=== PATIENT | female | born 1975 | race Caucasian/White ===

== ENCOUNTER 2018-07-11 14:49 | Emergency (ER) | payer OTHER ==
[~2018-07-11] VITALS: Ht 170.2 cm; Wt 98.9 kg
[2018-07-11] MEDS ORDERED: ALDOMET250 MG (14:55)
[2018-07-11] MEDS ORDERED: ALBUTEROL0.63 MG/3 (14:55)
[2018-07-11] MEDS ORDERED: PRENATABS RX T1 EACH (14:56)
== END 2018-07-11 19:15 | disposition home or self-care (01) ==
LOC: ER 14:49
DX: O20.0 Threatened abortion (principal); Z34.81 Encounter for supervision of other normal pregnancy, first trimester

== ENCOUNTER 2018-09-07 17:20 | Inpatient (IN) | payer OTHER ==
[~2018-09-07] VITALS: Ht 170.2 cm; Wt 98.9 kg
[~2018-09-07 17:20] MED LIST: ALBUTEROL0.63 MG/3; ALDOMET250 MG; PRENATABS RX T1 EACH
[2018-09-11] MEDS ORDERED: HUMULIN N100 UNIT/2 SUBCUTANEO ×2 (07:09)
[2018-09-11] MEDS ORDERED: DOCUSATE SODIU100 MG PO (07:09)
[2018-09-11] MEDS ORDERED: ASA-EC81 MG PO (07:09)
[2018-09-11] MEDS ORDERED: HumuLIN R 100 UNIT/1 SUBCUTANEO ×2 (07:09)
== END 2018-09-11 09:30 | disposition home or self-care (01) | DRG 832 ==
LOC: OB/GYN 17:20
PROVIDERS: ADMIT Obstetrics & Gynecology
PROC: 4A1HXCZ Monitoring of Products of Conception, Cardiac Rate, External Approach (ICD-10-PCS; 2018-09-07)
PROC: BY4CZZZ Ultrasonography of Second Trimester, Single Fetus (ICD-10-PCS; principal; 2018-09-08)
DX: O24.410 Gestational diabetes mellitus in pregnancy, diet controlled (principal); O10.012 Pre-existing essential hypertension complicating pregnancy, second trimester; O13.2 Gestational [pregnancy-induced] hypertension without significant proteinuria, second trimester; Z34.82 Encounter for supervision of other normal pregnancy, second trimester; O99.212 Obesity complicating pregnancy, second trimester; O99.512 Diseases of the respiratory system complicating pregnancy, second trimester
CPT/HCPCS: 240

== ENCOUNTER 2019-01-15 19:25 | Inpatient (IN) | payer OTHER ==
[~2019-01-15] VITALS: Ht 170.2 cm; Wt 101.6 kg
[~2019-01-15 19:25] MED LIST changes: +ASA-EC81 MG PO; +DOCUSATE SODIU100 MG PO; +HUMULIN N100 UNIT/2 SUBCUTANEO; +HumuLIN R 100 UNIT/1 SUBCUTANEO
[2019-01-15] MEDS ORDERED: ALDOMET250 MG/5 M IV (21:24)
[2019-01-15] MEDS ORDERED: HUMULIN N100 UNIT/2 SUBCUTANEO ×2 (21:29→21:34)
[2019-01-15] MEDS ORDERED: HUMULIN 70100 UNIT/2 SUBCUTANEO (21:30)
[2019-01-15] MEDS ORDERED: SINGULAIR 10MG10 MG PO (21:31)
[2019-01-15] MEDS ORDERED: TESSALON PERLE100 M1 PO (21:40)
[2019-01-15] MEDS ORDERED: SYMBICORT 80/10.2 GM IH (21:41)
[2019-01-18] MEDS ORDERED: TYLENOL #3 PO (08:16)
[2019-01-18] MEDS ORDERED: LABETALOL HCL100 MG PO (08:16)
== END 2019-01-18 13:58 | disposition home or self-care (01) | DRG 783 ==
LOC: LDR 19:25 → OB/GYN 19:25 → LDR 01-17 10:32 → OB/GYN 01-17 13:20
PROVIDERS: ADMIT Obstetrics & Gynecology
PROC: 0UL70ZZ Occlusion of Bilateral Fallopian Tubes, Open Approach (ICD-10-PCS; 2019-01-15)
PROC: 4A1HXCZ Monitoring of Products of Conception, Cardiac Rate, External Approach (ICD-10-PCS; 2019-01-15)
PROC: 10D00Z1 Extraction of Products of Conception, Low, Open Approach (ICD-10-PCS; principal; 2019-01-15 20:00)
DX: O82 Encounter for cesarean delivery without indication (principal); O60.14X0 Preterm labor third trimester with preterm delivery third trimester, not applicable or unspecified; O14.14 Severe pre-eclampsia complicating childbirth; O24.424 Gestational diabetes mellitus in childbirth, insulin controlled; Z3A.35 35 weeks gestation of pregnancy; Z37.0 Single live birth; Z30.2 Encounter for sterilization